=== PATIENT | male | born 1975 | race Caucasian/White ===

== ENCOUNTER → 2024-01-13 07:44 | Outpatient (CLI) | payer OTHER, SELFPAY ==
--- NOTE | ~2024-01-13 | MR_ITS ---
MRI of the brain Clinical History: Headache Technique: Axial and sagittal T1-weighted images were acquired. These were followed by axial T2-weigh sully, diffusion weighted, gradient, and FLAIR images. Following intravenous administration of 14 cc Mu ltiHance gadolinium, T1-weighted fat-sat imaging was performed in the axial and coronal planes. Findings: There is no abnormal signal in the brain parenchyma. No acute infarct, intracranial hemorrh age, or mass lesion. Ventricles and subarachnoid spaces are unremarkable. Orbits are unremarkable. Paranasal sinuses and m astoid air cells are clear. Major intracranial flow voids are intact. Sagittal midline structures are intact. No abnormal postcontrast enhancement identified. IMPRESSION: Unremarkable exam. Reviewed, dictated and finalized at location M. CLERK PASSENGER IMPRESSION: Unremarkable exam.
--- NOTE | ~2024-01-13 | MR_ITS ---
MRA OF THE BRAIN INDICATION: Headaches PROCEDURE: The study consist of multiple vertical and horizontal reconstructive images using informat ion obtained from a 3-D [id number] technique. COMPARISON: No prior studies for comparison. FINDINGS: There is relatively normal and symmetrical flow seen within the anterior cerebral, middle c erebral and posterior cerebral arteries. The flow signals within the intracranial segments of the in ternal carotid arteries and the basilar artery are within normal limits. There are no focal abnormal ities to suggest a hemodynamically significant stenosis or aneurysm about the [place]. IMPRESSION: UNREMARKABLE MR INTRACRANIAL ANGIOGRAPHY STUDY. Reviewed, dictated and finalized at location A. ALT HEATER OPERATOR
== END ==
DX: R51.9 Headache, unspecified (principal)
CPT/HCPCS: 70544; 70553; A9577